=== PATIENT | female | born 1935 | race African-American/Black ===

== ENCOUNTER 2017-03-31 14:27 | Emergency (ER) | payer MEDICARE, OTHER ==
--- NOTE | 2017-03-31 15:05 | ED Physician Documentation ---
General Adult - HISTORIAN Historian: patient - HPI Stated Complaint: CONSTIPATION Chief Complaint: General Adult Onset: other (one week. ) Timing: still present Further Comments: yes (STates that she has not had a BM in the last week. Taking Miralax on a daily basis. No nausea or vomiting noted. No fever or chills noted. Normally has a BM once a day. Appetite is good. Patient is incontinent of BM. No blood in stool previously. Has had problems with constipation in the past but had been doing better.) - ROS CONST: no problems - PAST HX Past History: hypertension, other (dementia) Surgeries/Procedures: other (unknown) Allergies/Adverse Reactions: Allergies Allergy/AdvReac Type Severity Reaction Status Date / Time Penicillins Allergy Unknown Verified 03/31/17 14:49 Home Medications: Ambulatory Orders Medication Instructions Recorded NK [NK] 09/19/16 - SOCIAL HX Smoking History: quit greater than 1 year (30 yrs ago) Alcohol Use: none Drug Use: none - FAMILY HX Family History: No - VITAL SIGNS Vital Signs: Vital Signs Temp Pulse Resp BP Pulse Ox 98.1 F 66 18 230/101 97 03/31/17 14:32 03/31/17 14:32 03/31/17 14:32 03/31/17 14:32 03/31/17 14:32 - REVIEWED ASSESSMENTS Nursing Assessment Reviewed: Yes Vitals Reviewed: Yes ED Results Lab/Radiology - Radiology Radiology Impressions: Report Submission Date: March 31, 2017 4:01:10 PM CDT Patient Study Name: ARTURO BARKER Date: March 31, 2017 3:24:56 PM CDT Modality Type: CR Gender: F Description: ABDOMEN : 35 Institution: [facility] Physician: JOSEPHINE LIGHT 4 views of the abdomen History: CONSTIPATION. PATIENT HAS DEMENTIA findings: No comparison studies. No free air under the diaphragm on the upright view. Large amount of stool is seen throughout the colon. Post cholecystectomy. Degenerative changes are noted at the right hip. A 2.6 cm radiopaque structure superimposes the left hip Impression: 1. Large amount of stool throughout the colon. 2.No free intraperitoneal air. Post cholecystectomy. Electronically signed on March 31, 2017 4:01:10 PM CDT by: Porsha Marino General Adult Physical Exam - PHYSICAL EXAM GENERAL APPEARANCE: no distress EENT: ENT inspection normal, pharynx normal, no signs of dehydration NECK: normal inspection RESPIRATORY: no resp distress, chest non-tender, breath sounds normal CVS: reg rate & rhythm, heart sounds normal, equal pulses, no gallop ABDOMEN: soft, no organomegaly, normal bowel sounds, no abdominal bruit, no distension, non-tender RECTAL: heme negative stool, other (large amount of soft stool in nataliya rectum) BACK: normal inspection SKIN: warm/dry, normal color EXTREMITIES: non-tender NEURO: No: oriented X3, cognition normal (dementia) Discharge Clincal Impression: Constipation by delayed colonic transit Referrals: Sachin Liu MD [Primary Care Provider] - 2 Days Additional Instructions: Try to encourage fluids as much as possible. Give Alline 1/2 bottle of Citrate of Magnesium tonight. If no BM results repeat it in the AM. Contact her primary care provider about further treatment of her blood pressure. Contact her primary care provider about a plan of what to do if she fails to have a BM for several days. Return to the ED as needed. Home Medications: Ambulatory Orders NK [NK] 09/19/16 Condition: Stable Disposition: 01 HOME, SELF-CARE Decision to Admit: NO Date of Decison to Admit: 03/31/17 Decision Time: 16:19
[2017-03-31 15:57] LABS: BASOPHILS % 0.7 (0.0-1.5); EOSINOPHILS % 0.8 % (0.0-6.8); MEAN CORPUSCULAR HEMOGLOBIN 27.5 pg (28.0-34.0); MEAN CORPUSCULAR VOLUME 89.9 fl (80.0-100.0); MONOCYTES % 6.4 % (0.0-11.0); NEUTROPHILS # 3.8 # k/uL (1.4-7.7)
[2017-03-31 16:15] LABS: eGFR (African) > 60; eGFR (Non-African) > 60
--- NOTE | 2017-03-31 16:31 | Diagnostic Imaging Report ---
[facility] [address] [facility].[address] [address] Report Submission Date: March 31, 2017 4:01:10 PM CDT Patient Study Name: ARTURO BARKER Date: March 31, 2017 3:24:56 PM CDT Modality Type: CR Gender: F Description: ABDOMEN : 35 Institution: [facility] Physician: JOSEPHINE LIGHT 4 views of the abdomen History: CONSTIPATION. PATIENT HAS DEMENTIA findings: No comparison studies. No free air under the diaphragm on the upright view. Large amount of stool is seen throughout the colon. Post cholecystectomy. Degenerative changes are noted at the right hip. A 2.6 cm radiopaque structure superimposes the left hip Impression: 1. Large amount of stool throughout the colon. 2.No free intraperitoneal air. Post cholecystectomy. Electronically signed on March 31, 2017 4:01:10 PM CDT by: Porsha MORRIS
[2017-03-31 16:42] VITALS: BP 168/71
== END 2017-03-31 16:33 | disposition home or self-care (01) ==
LOC: ED 14:27
DX: K59.01 Slow transit constipation (principal)
CPT/HCPCS: 74020; 80053; 85025; 99283

== ENCOUNTER 2018-05-02 16:25 | Emergency (ER) | payer MEDICARE, OTHER ==
--- NOTE | 2018-05-02 16:37 | ED Physician Documentation ---
General Adult - HISTORIAN Historian: patient - HPI Stated Complaint: syncopal episode Chief Complaint: Syncope Onset: minutes (30) Timing: better Severity: mild Further Comments: yes (She has end stage alzhemiers per family at bedside. She was on the toliet (known to have constipation) the son said she was straining and did pass out . She did not fall from the toliet . No LOC. She does not speak per the family at bedside. No new symptoms.) Last known Well Code/Unknown Code: Unknown - ROS CONST: no problems GI/: other (constipation ) MS/SKIN/LYMPH: none NEURO/PSYCH: fainting (from bowel movement ). denies: dizziness - PAST HX Past History: other (alzehimers ) Other History: none Surgeries/Procedures: none Allergies/Adverse Reactions: Allergies Allergy/AdvReac Type Severity Reaction Status Date / Time Penicillins Allergy Unknown Verified 05/02/18 17:17 Home Medications: Ambulatory Orders Medication Instructions Recorded Amlodipine Besylate/Benazepril 1 each PO 05/02/18 [Amlodipine-Benazepril 5-20 mg] - SOCIAL HX Smoking History: non-smoker Alcohol Use: none Drug Use: none - FAMILY HX Family History: No - VITAL SIGNS Vital Signs: Vital Signs Temp Pulse Resp BP Pulse Ox 168/71 03/31/17 16:20 - REVIEWED ASSESSMENTS Nursing Assessment Reviewed: Yes Vitals Reviewed: Yes Progress - Progress Progress: 1811: resting quietly in bed. Family at bedside DG 1842: results discussed and plan. family is agreeable DG ED Results Lab/Radiology - Radiology Radiology Impressions: 3 views of the abdomen Clinical history: Abdominal pain Findings: The heart size is mildly enlarged. The lungs are clear. No gross pneumoperitoneum is identified. There is a large amount of fecal material in the rectosigmoid colon. Impression: Constipation Electronically signed on May 02, 2018 6:21:26 PM CDT by: Colin Sharpe General Adult Physical Exam - PHYSICAL EXAM GENERAL APPEARANCE: no distress EENT: eye inspection normal, KAREN NECK: normal inspection RESPIRATORY: no resp distress, chest non-tender, breath sounds normal CVS: reg rate & rhythm, heart sounds normal, equal pulses, no murmur ABDOMEN: soft, no distension, non-tender, decreased BS BACK: normal inspection SKIN: warm/dry, normal color EXTREMITIES: non-tender NEURO: mood/affect nml, other (non verbal - this is normal per family ) Discharge Clincal Impression: Constipation by delayed colonic transit Referrals: Sachin Liu MD [REFERRING] - 2 Days Comments: 1. 1/2 bottle magnisum citrate and then if no results in 2 hours 1/2 again 2. Follow up with PCP in 2-4 days 3. return to ER for any concerns Condition: Stable Disposition: 01 HOME, SELF-CARE Decision to Admit: NO Date of Decison to Admit: 05/02/18 Decision Time: 18:39
[2018-05-02 17:07] LABS: BASOPHILS % 0.7 (0.0-1.5); EOSINOPHILS % 1.1 % (0.0-6.8); MEAN CORPUSCULAR HEMOGLOBIN 29.5 pg (28.0-34.0); MEAN CORPUSCULAR VOLUME 92.5 fl (80.0-100.0); MONOCYTES % 4.7 % (0.0-11.0); NEUTROPHILS # 2.7 # k/uL (1.4-7.7)
[2018-05-02 17:52] LABS: eGFR (African) > 60; eGFR (Non-African) > 60
--- NOTE | 2018-05-02 18:34 | Diagnostic Imaging Report ---
[facility] [address] [facility].[address] [address] Report Submission Date: May 02, 2018 6:21:26 PM CDT Patient Study Name: GISSEL BARKER Date: May 02, 2018 5:11:11 PM CDT MRN: [id number] Modality Type: DX Gender: F Description: CHEST,ABDOMEN : 35 Institution: [facility] Physician: DARION BUSTOS 3 views of the abdomen Clinical history: Abdominal pain Findings: The heart size is mildly enlarged. The lungs are clear. No gross pneumoperitoneum is identified. There is a large amount of fecal material in the rectosigmoid colon. Impression: Constipation Electronically signed on May 02, 2018 6:21:26 PM CDT by: Colin MORRIS
[2018-05-02] MEDS ORDERED: MAGNESIUM CITRATE 296 ML BOTTLE PO ONE (18:39)
[2018-05-02 19:14] VITALS: BP 137/59
== END 2018-05-02 19:05 | disposition home or self-care (01) ==
LOC: ED 16:25
DX: K59.01 Slow transit constipation (principal)
CPT/HCPCS: 74022; 80053; 85025; 99284; S1016